=== PATIENT | female | born 1990 | race American Indian/Alaskan Native ===

== ENCOUNTER 2017-09-12 23:48 | Emergency (ER) | payer OTHER, MEDICAID ==
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
[2017-09-13 04:14] VITALS: BP 105/65
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
[2017-09-13] MEDS ORDERED: BOOSTRIX IM ONE (05:21)
[2017-09-13] MEDS ORDERED: TYLENOL #3 PO ONE (05:21)
== END 2017-09-13 07:03 | disposition home or self-care (01) ==
LOC: ED 23:48
DX: S00.93XA Contusion of unspecified part of head, initial encounter (principal); G44.319 Acute post-traumatic headache, not intractable; S06.9X9A Unspecified intracranial injury with loss of consciousness of unspecified duration, initial encounter; S06.0X9A Concussion with loss of consciousness of unspecified duration, initial encounter; S00.83XA Contusion of other part of head, initial encounter; S00.01XA Abrasion of scalp, initial encounter; S16.1XXA Strain of muscle, fascia and tendon at neck level, initial encounter; V49.49XA Driver injured in collision with other motor vehicles in traffic accident, initial encounter; Y93.89 Activity, other specified; Y92.89 Other specified places as the place of occurrence of the external cause; Y99.8 Other external cause status
CPT/HCPCS: 70450; 70486; 90471; 90715

== ENCOUNTER 2017-09-26 12:19 | Outpatient (CLI) | payer OTHER, MEDICAID ==
--- NOTE | 2017-09-30 15:58 | Vascular Lab Report ---
Left Lower Extremity Venous Duplex Study: Reason for Exam: DVT. Comments on the Right: A limited duplex study was done of the proximal veins of the right lower extremity. All veins visualized are freely compressible without evidence of internal echogenicity. Flow is spontaneous and phasic throughout. No evidence of acute or chronic thrombus is seen in any of the vessels visualized. Comments on the Left: All veins visualized are freely compressible without evidence of internal echogenicity. Flow is spontaneous and phasic throughout. No evidence of acute or chronic thrombus is seen in any of the vessels visualized. Impression: No evidence of acute or chronic deep venous thrombosis in the left lower extremity.
== END 2017-09-26 12:20 | disposition home or self-care (01) ==
LOC: VAS 12:19
DX: I82.409 Acute embolism and thrombosis of unspecified deep veins of unspecified lower extremity (principal)